=== PATIENT | female | born 1965 | race Caucasian/White ===

== ENCOUNTER 2021-02-08 04:25 | Emergency (ER) | payer OTHER ==
[~2021-02-08] VITALS: Ht 157.5 cm; Wt 109.0 kg
[2021-02-08 04:32] VITALS: BP 106/75
[2021-02-08 05:36] LABS: BASOPHILS % 0.8 % (0.0-2.0); EOSINOPHILS % 2.7 % (0.0-5.0); HEMATOCRIT. 38.2 % (36.0-48.0); HEMOGLOBIN. 12.4 g/dL (12.0-16.0); LYMPHOCYTES % 49.2 % (20.0-50.0); MEAN CORPUSCULAR HEMOGLOBIN 25.4 pg (28.0-32.0); MEAN CORPUSCULAR VOLUME 78.2 fL (81.0-99.0); MEAN PLATELET VOLUME 8.2 fl (7.4-10.4); MONOCYTES % 8.4 % (2.0-8.0); NEUTROPHILS % 38.9 % (40.0-76.0); PLATELET 276 x1000/uL (130-400); RED BLOOD CELL COUNT 4.88 mill/uL (4.2-5.4)
[2021-02-08 05:44] LABS: CHLORIDE 105 mEq/L (98-107)
[2021-02-08 05:48] LABS: INR 0.9; PARTIAL THROMBOPLASTIN TIME 24.5 sec (23.4-31.0); PROTHROMBIN TIME 10.2 sec (9.6-11.0)
[2021-02-08] MEDS ORDERED: IBUPROFEN 600MG TABLET PO ONE (06:15)
[2021-02-08] MEDS ORDERED: ACET650T37 MT (06:19)
== END 2021-02-08 06:44 | disposition home or self-care (01) ==
LOC: ER 04:25
DX: R07.89 Other chest pain (principal)
CPT/HCPCS: 36415; 71045; 80053; 83880; 84484; 85025; 93005; 99285

== ENCOUNTER 2021-05-21 17:18 | Emergency (ER) | payer MEDICAID, OTHER ==
[~2021-05-21] VITALS: Ht 157.5 cm; Wt 107.0 kg
[~2021-05-21 17:18] MED LIST: ACET650T37 MT
[2021-05-21 17:34] VITALS: BP 135/84
[2021-05-21] MEDS ORDERED: IPRATROPIUM BROMIDE (0.02%) 0.5MG/2.5ML NEB HHN STA (17:39)
[2021-05-21] MEDS ORDERED: ALBUTEROL (0.083%) 2.5MG/3ML NEB HHN STA (17:39)
[2021-05-21] MEDS ORDERED: ALBU90AE INH (20:14)
== END 2021-05-21 20:53 | disposition home or self-care (01) ==
LOC: EDBD → ER 17:18
DX: J45.901 Unspecified asthma with (acute) exacerbation (principal); E11.9 Type 2 diabetes mellitus without complications; Z91.09 Other allergy status, other than to drugs and biological substances
CPT/HCPCS: 71045; 94640; 99283; Z7610

== ENCOUNTER 2021-05-26 14:38 | Emergency (ER) | payer MEDICAID ==
[~2021-05-26] VITALS: Ht 157.5 cm; Wt 106.0 kg
[~2021-05-26 14:38] MED LIST changes: +ALBU90AE INH
[2021-05-26 14:40] VITALS: BP 134/91
[2021-05-26] MEDS ORDERED: AMOX-424 MT (15:23)
[2021-05-26] MEDS ORDERED: HYDR-4001 MT (15:23)
[2021-05-26] MEDS ORDERED: BENZ11.95 TOP (15:23)
== END 2021-05-26 15:30 | disposition home or self-care (01) ==
LOC: ER 14:38
DX: K04.7 Periapical abscess without sinus (principal); E11.9 Type 2 diabetes mellitus without complications; J45.909 Unspecified asthma, uncomplicated
CPT/HCPCS: 99283

== ENCOUNTER 2022-04-09 01:04 | Emergency (ER) | payer MEDICAID, OTHER ==
[~2022-04-09] VITALS: Ht 157.5 cm; Wt 102.0 kg
[~2022-04-09 01:04] MED LIST changes: +ACET-3163 MT; -ACET650T37 MT; +AMOX-424 MT; +BENZ11.95 TOP; +HYDR-4001 MT
[2022-04-09 01:37] VITALS: BP 134/80
[2022-04-09] MEDS ORDERED: ACETAMINOPHEN 325MG TABLET PO ONE (08:00)
[2022-04-09] MEDS ORDERED: IBUP-2029 MT (08:55)
[2022-04-09] MEDS ORDERED: AMOX-494 MT (08:55)
== END 2022-04-09 09:19 | disposition home or self-care (01) ==
LOC: ER 01:04 → EDBD 01:04 → ER 09:19
DX: R51.9 Headache, unspecified (principal); R68.84 Jaw pain; R03.0 Elevated blood-pressure reading, without diagnosis of hypertension; K02.9 Dental caries, unspecified; K08.409 Partial loss of teeth, unspecified cause, unspecified class; R90.82 White matter disease, unspecified
CPT/HCPCS: 99284